=== PATIENT | female | born 1975 | race Caucasian/White ===

== ENCOUNTER 2019-11-06 14:28 | Inpatient (IN) | payer OTHER ==
[~2019-11-06] VITALS: Ht 165.1 cm; Wt 70.0 kg
[2019-11-06] MEDS ORDERED: ONDANSETRON HCL 4 MG/2 ML VIAL IVP PRN (15:45)
[2019-11-06] MEDS ORDERED: ACETAMINOPHEN 325 MG TABLET PO PRN (15:45)
[2019-11-06 19:55] VITALS: BP 114/69
[2019-11-06] MEDS ORDERED: ONDANSETRON HCL 4 MG TABLET PO PRN (20:00)
[2019-11-06] MEDS ORDERED: NICOTINE 14 MG/24 HOUR PATCH TD PRN (20:00)
[2019-11-06] MEDS ORDERED: MAG HYDROX/AL HYDROX/SIMETH ES 30 ML SUSPENSION UDCUP PO PRN (20:00)
[2019-11-06] MEDS ORDERED: LOPERAMIDE HCL 2 MG CAPSULE PO PRN (20:00)
[2019-11-06] MEDS ORDERED: GuaiFENesin/D-METHORPHAN [SUGAR-FREE] 200-20MG/10 ML SYRUP UDCUP PO PRN (20:00)
[2019-11-06] MEDS ORDERED: DOCUSATE SODIUM 100 MG CAPSULE PO PRN (20:00)
[2019-11-06] MEDS ORDERED: PETROLATUM,WHITE 28 GM JELLY TP PRN (20:00)
[2019-11-06] MEDS ORDERED: CloNIDine HCL 0.1 MG TABLET PO PRN (20:00)
[2019-11-06] MEDS ORDERED: ALBUTEROL SULFATE HFA 90 MCG/PUFF 8 GM INHALER IH PRN (20:00)
[2019-11-06] MEDS ORDERED: MAGNESIUM HYDROXIDE SUSPENSION 30 ML UDCUP PO PRN (20:00)
[2019-11-06] MEDS: ACETAMINOPHEN 325 MG TABLET PO PRN (23:16)
[2019-11-06 23:20] VITALS: BP 131/78
[2019-11-07] VITALS (19 sets, daily range): BP systolic 103–132; BP diastolic 58–87
[2019-11-07 06:32] LABS: BASOPHILS % (AUTO) 1.3 % (0.0-2.0); EOSINOPHILS % (AUTO) 2.4 % (1.0-6.0); LYMPHOCYTES # (AUTO) 1.4 K/uL (1.0-4.8); LYMPHOCYTES % (AUTO) 28.7 % (22.0-44.0); MEAN CORPUSCULAR HEMOGLOBIN 12.9 pg (26.0-34.0); MEAN CORPUSCULAR HGB CONC 25.8 G/dL (31.0-37.0); MEAN CORPUSCULAR VOLUME 50 fL (80-100); MONOCYTES # (AUTO) 0.5 K/uL (0.1-1.0); MONOCYTES % (AUTO) 9.6 % (2.0-9.0); NEUTROPHILS # (AUTO) 2.9 K/uL (1.8-7.7); PLATELET COUNT (AUTO) 354 K/uL (150-450); RED BLOOD CELL COUNT(AUTO) 3.71 MIL/uL (4.00-5.20)
[2019-11-07 06:52] LABS: HEMATOCRIT 18.5 % (36-46); HEMOGLOBIN 4.8 g/dL (12.0-16.0)
[2019-11-07 07:01] LABS: ANION GAP 6 mmol/L (8-16); CALCIUM, TOTAL 8.2 mg/dL (8.8-10.5); CARBON DIOXIDE 27 mmol/L (22-29); CHLORIDE 106 mmol/L (98-107); CHOLESTEROL 145 mg/dL (131-200); CREATININE 0.75 mg/dL (0.60-1.30); GLOMERULAR FILTR. RATE CALC > 60 mL/min (>60); GLUCOSE,RANDOM 85 mg/dL (70-110); HDL CHOLESTEROL 73 mg/dL (40-60); LDL CHOL (CALC.) 62 mg/dL (0-130); POTASSIUM 3.9 mmol/L (3.5-5.1); SODIUM SERUM 139 mmol/L (136-145); TRIGLYCERIDES 52 mg/dL (15-150); UREA NITROGEN, BLOOD 11 mg/dL (7-18)
[2019-11-07 08:01] LABS: PLATELET MORPHOLOGY COMMENT GIANT PLTS PRESENT
[2019-11-07] MEDS: ACETAMINOPHEN 325 MG TABLET PO PRN ×2 (08:49→22:22)
[2019-11-07 10:22] LABS: MEAN CORPUSCULAR HEMOGLOBIN 12.6 pg (26.0-34.0); MEAN CORPUSCULAR HGB CONC 25.4 G/dL (31.0-37.0); MEAN CORPUSCULAR VOLUME 50 fL (80-100); PLATELET COUNT (AUTO) 367 K/uL (150-450); RED CELL DISTRIBUTION WIDTH 22.4 % (11.5-14.5)
[2019-11-07 10:36] LABS: HEMOGLOBIN 4.8 g/dL (12.0-16.0)
[2019-11-07 10:37] LABS: HEMATOCRIT 18.9 % (36-46)
[2019-11-07] MEDS ORDERED: SODIUM CHLORIDE 0.9% 500 ML IV ONE (10:55)
[2019-11-07 11:05] LABS: BAND NEUTROPHILS % (MANUAL) 3 % (0-5); EOSINOPHILS % (MANUAL) 1 % (1-6); LYMPHOCYTES % (MANUAL) 29 % (22-44); METAMYELOCYTES % 1 % (0-0); MONOCYTES % (MANUAL) 3 % (2-9); PLATELET MORPHOLOGY COMMENT GIANT PLTS PRESENT; SEGMENTED NEUTROPHILS % 63 % (40-70)
[2019-11-07 12:21] LABS: % IRON SATURATION 1.9 % (22-44)
[2019-11-07] MEDS: IBUPROFEN 400 MG TABLET PO PRN (12:25)
[2019-11-07 16:17] LABS: APPEARANCE,URINE CLOUDY (CLEAR); BILIRUBIN,URINE NEGATIVE (NEGATIVE); GLUCOSE, URINE (UA) NEGATIVE (NEGATIVE); KETONES,URINE NEGATIVE (NEGATIVE); LEUKOCYTE ESTERASE ,URINE MODERATE (NEGATIVE); NITRATE,URINE POSITIVE (NEGATIVE); OCCULT BLOOD,URINE MODERATE (NEGATIVE); PH,URINE 5.5 (5.0-8.0); PROTEIN,URINE NEGATIVE (NEGATIVE)
[2019-11-07 16:24] LABS: AMPHET/METH SCREEN,URINE POSITIVE (NEGATIVE); BARBITURATE SCREEN, URINE NEGATIVE (NEGATIVE); BENZODIAZEPINES SCREEN,URINE NEGATIVE (NEGATIVE); CANNABINOID SCREEN,URINE NEGATIVE (NEGATIVE); COCAINE SCREEN,URINE NEGATIVE (NEGATIVE); METHADONE SCREEN, URINE NEGATIVE (NEGATIVE); OPIATE SCREEN,URINE NEGATIVE (NEGATIVE); PHENCYCLIDINE SCREEN,URINE NEGATIVE (NEGATIVE)
[2019-11-07 16:25] LABS: BACTERIA,URINE Many /HPF (None Seen); RBC,URINE 0-2 /HPF (0-2); SQUAMOUS EPITHELIAL CELL,UR Few /LPF (None Seen); WBC,URINE 26-50 /HPF (0-5)
[2019-11-08] VITALS (14 sets, daily range): BP systolic 103–138; BP diastolic 63–91
[2019-11-08] MEDS: IBUPROFEN 400 MG TABLET PO PRN (03:27)
[2019-11-08 07:47] LABS: BASOPHILS % (AUTO) 1.5 % (0.0-2.0); EOSINOPHILS % (AUTO) 0.7 % (1.0-6.0); HEMATOCRIT 23.8 % (36-46); LYMPHOCYTES # (AUTO) 1.1 K/uL (1.0-4.8); MEAN CORPUSCULAR HEMOGLOBIN 15.6 pg (26.0-34.0); MEAN CORPUSCULAR HGB CONC 28.1 G/dL (31.0-37.0); MEAN CORPUSCULAR VOLUME 55 fL (80-100); MONOCYTES # (AUTO) 0.4 K/uL (0.1-1.0); MONOCYTES % (AUTO) 7.6 % (2.0-9.0); NEUTROPHILS % (AUTO) 70.2 % (40.0-70.0); PLATELET COUNT (AUTO) 326 K/uL (150-450); RED CELL DISTRIBUTION WIDTH 31.6 % (11.5-14.5)
[2019-11-08 08:00] LABS: ANION GAP 8 mmol/L (8-16); CARBON DIOXIDE 25 mmol/L (22-29); CHLORIDE 104 mmol/L (98-107); CREATININE 0.64 mg/dL (0.60-1.30); GLOMERULAR FILTR. RATE CALC > 60 mL/min (>60); GLUCOSE,RANDOM 85 mg/dL (70-110); POTASSIUM 3.6 mmol/L (3.5-5.1); SODIUM SERUM 137 mmol/L (136-145); UREA NITROGEN, BLOOD 7 mg/dL (7-18)
[2019-11-08 08:09] LABS: HEMOGLOBIN 6.7 g/dL (12.0-16.0)
[2019-11-08] MEDS: CefTRIAXone 1 GM/DEXTROSE 50 ML IV SCH (16:30)
[2019-11-08 17:09] LABS: BASOPHILS % (AUTO) 1.8 % (0.0-2.0); EOSINOPHILS % (AUTO) 1.4 % (1.0-6.0); HEMATOCRIT 26.7 % (36-46); HEMOGLOBIN 7.8 g/dL (12.0-16.0); LYMPHOCYTES # (AUTO) 0.9 K/uL (1.0-4.8); LYMPHOCYTES % (AUTO) 18.5 % (22.0-44.0); MEAN CORPUSCULAR HEMOGLOBIN 17.3 pg (26.0-34.0); MEAN CORPUSCULAR HGB CONC 29.1 G/dL (31.0-37.0); MEAN CORPUSCULAR VOLUME 60 fL (80-100); MONOCYTES # (AUTO) 0.5 K/uL (0.1-1.0); MONOCYTES % (AUTO) 9.7 % (2.0-9.0); NEUTROPHILS # (AUTO) 3.4 K/uL (1.8-7.7); NEUTROPHILS % (AUTO) 68.6 % (40.0-70.0); PLATELET COUNT (AUTO) 293 K/uL (150-450); RED BLOOD CELL COUNT(AUTO) 4.48 MIL/uL (4.00-5.20); RED CELL DISTRIBUTION WIDTH 36.7 % (11.5-14.5)
[2019-11-08] MEDS: ACETAMINOPHEN 325 MG TABLET PO PRN (23:20)
[2019-11-09 05:45] VITALS: BP 128/75
[2019-11-09 07:30] VITALS: BP 137/87
[2019-11-09 11:30] VITALS: BP 124/76
[2019-11-09] MEDS: CefTRIAXone 1 GM/DEXTROSE 50 ML IV SCH (14:16)
[2019-11-09 19:36] VITALS: BP 126/71
[2019-11-09] MEDS: ACETAMINOPHEN 325 MG TABLET PO PRN (21:18)
[2019-11-09 23:15] VITALS: BP 135/89
[2019-11-10 05:02] VITALS: BP 136/69
[2019-11-10 07:15] LABS: BASOPHILS % (AUTO) 1.3 % (0.0-2.0); EOSINOPHILS % (AUTO) 4.2 % (1.0-6.0); HEMATOCRIT 28.4 % (36-46); HEMOGLOBIN 8.4 g/dL (12.0-16.0); LYMPHOCYTES # (AUTO) 1.6 K/uL (1.0-4.8); MEAN CORPUSCULAR HEMOGLOBIN 17.5 pg (26.0-34.0); MEAN CORPUSCULAR HGB CONC 29.5 G/dL (31.0-37.0); MEAN CORPUSCULAR VOLUME 59 fL (80-100); MONOCYTES # (AUTO) 0.5 K/uL (0.1-1.0); MONOCYTES % (AUTO) 10.5 % (2.0-9.0); NEUTROPHILS # (AUTO) 2.2 K/uL (1.8-7.7); PLATELET COUNT (AUTO) 330 K/uL (150-450); RED BLOOD CELL COUNT(AUTO) 4.79 MIL/uL (4.00-5.20); RED CELL DISTRIBUTION WIDTH 37.7 % (11.5-14.5)
[2019-11-10 08:34] VITALS: BP 138/89
[2019-11-10 11:35] VITALS: BP 138/82
[2019-11-10] MEDS: CefTRIAXone 1 GM/DEXTROSE 50 ML IV SCH (14:11)
[2019-11-10 15:01] VITALS: BP 132/74
[2019-11-10] MEDS: ACETAMINOPHEN 325 MG TABLET PO PRN (17:37)
[2019-11-10 19:22] VITALS: BP 127/77
[2019-11-10 23:02] VITALS: BP 134/80
[2019-11-10] MEDS: IBUPROFEN 400 MG TABLET PO PRN (23:22)
[2019-11-11 05:40] VITALS: BP 122/95
[2019-11-11 07:25] VITALS: BP 108/66
[2019-11-11 11:19] VITALS: BP 140/77
[2019-11-11] MEDS: CefTRIAXone 1 GM/DEXTROSE 50 ML IV SCH (13:58)
[2019-11-11 15:04] VITALS: BP 124/69
[2019-11-11 19:16] VITALS: BP 121/76
[2019-11-11] MEDS: MELATONIN 5 MG TABLET PO PRN (23:22)
[2019-11-12] VITALS (7 sets, daily range): BP systolic 115–148; BP diastolic 62–89
[2019-11-12] MEDS: FERROUS SULFATE 325 MG EC TABLET PO SCH ×3 (09:25→17:56)
[2019-11-12] MEDS ORDERED: SODIUM CHLORIDE 0.9% 250 ML IV ONE (13:43)
[2019-11-12] MEDS: CefTRIAXone 1 GM/DEXTROSE 50 ML IV SCH (13:52)
[2019-11-12] MEDS: SENNA 187 MG TABLET PO SCH (20:19)
[2019-11-12] MEDS: ACETAMINOPHEN 325 MG TABLET PO PRN (21:22)
[2019-11-12] MEDS: MELATONIN 5 MG TABLET PO PRN (22:53)
[2019-11-13 05:15] VITALS: BP 129/74
[2019-11-13 06:26] LABS: BASOPHILS % (AUTO) 1.3 % (0.0-2.0); HEMATOCRIT 26.3 % (36-46); HEMOGLOBIN 7.7 g/dL (12.0-16.0); LYMPHOCYTES # (AUTO) 2.4 K/uL (1.0-4.8); LYMPHOCYTES % (AUTO) 39.5 % (22.0-44.0); MEAN CORPUSCULAR HEMOGLOBIN 17.4 pg (26.0-34.0); MEAN CORPUSCULAR HGB CONC 29.2 G/dL (31.0-37.0); MEAN CORPUSCULAR VOLUME 60 fL (80-100); MONOCYTES # (AUTO) 0.4 K/uL (0.1-1.0); NEUTROPHILS % (AUTO) 49.2 % (40.0-70.0); PLATELET COUNT (AUTO) 353 K/uL (150-450); RED BLOOD CELL COUNT(AUTO) 4.41 MIL/uL (4.00-5.20); RED CELL DISTRIBUTION WIDTH 36.6 % (11.5-14.5)
[2019-11-13 07:15] LABS: ANION GAP 6 mmol/L (8-16); CARBON DIOXIDE 29 mmol/L (22-29); CHLORIDE 105 mmol/L (98-107); CREATININE 0.71 mg/dL (0.60-1.30); GLOMERULAR FILTR. RATE CALC > 60 mL/min (>60); GLUCOSE,RANDOM 76 mg/dL (70-110); POTASSIUM 3.9 mmol/L (3.5-5.1); SODIUM SERUM 140 mmol/L (136-145)
[2019-11-13 07:42] LABS: UREA NITROGEN, BLOOD 11 mg/dL (7-18)
[2019-11-13 08:04] VITALS: BP 135/98
[2019-11-13] MEDS: FERROUS SULFATE 325 MG EC TABLET PO SCH ×3 (09:06→18:12)
[2019-11-13 12:39] VITALS: BP 129/74
[2019-11-13] MEDS: CefTRIAXone 1 GM/DEXTROSE 50 ML IV SCH (15:28)
[2019-11-13 16:57] VITALS: BP 131/72
[2019-11-13 19:22] VITALS: BP 130/75
[2019-11-13] MEDS: SENNA 187 MG TABLET PO SCH (19:54)
[2019-11-13] MEDS: MELATONIN 5 MG TABLET PO PRN (20:25)
[2019-11-13 23:15] VITALS: BP 118/68
[2019-11-14 05:35] VITALS: BP 120/75
[2019-11-14 07:15] VITALS: BP 121/79
[2019-11-14 07:31] LABS: BASOPHILS % (AUTO) 1.3 % (0.0-2.0); EOSINOPHILS % (AUTO) 3.8 % (1.0-6.0); HEMATOCRIT 26.1 % (36-46); HEMOGLOBIN 7.6 g/dL (12.0-16.0); LYMPHOCYTES # (AUTO) 2.4 K/uL (1.0-4.8); LYMPHOCYTES % (AUTO) 34.7 % (22.0-44.0); MEAN CORPUSCULAR HEMOGLOBIN 17.3 pg (26.0-34.0); MEAN CORPUSCULAR HGB CONC 28.9 G/dL (31.0-37.0); MEAN CORPUSCULAR VOLUME 60 fL (80-100); MONOCYTES # (AUTO) 0.5 K/uL (0.1-1.0); MONOCYTES % (AUTO) 7.2 % (2.0-9.0); NEUTROPHILS # (AUTO) 3.6 K/uL (1.8-7.7); PLATELET COUNT (AUTO) 350 K/uL (150-450); RED BLOOD CELL COUNT(AUTO) 4.37 MIL/uL (4.00-5.20); RED CELL DISTRIBUTION WIDTH 36.5 % (11.5-14.5)
[2019-11-14 07:38] LABS: ANION GAP 6 mmol/L (8-16); CALCIUM, TOTAL 8.2 mg/dL (8.8-10.5); CARBON DIOXIDE 30 mmol/L (22-29); CHLORIDE 105 mmol/L (98-107); CREATININE 0.62 mg/dL (0.60-1.30); GLOMERULAR FILTR. RATE CALC > 60 mL/min (>60); GLUCOSE,RANDOM 75 mg/dL (70-110); POTASSIUM 3.9 mmol/L (3.5-5.1); SODIUM SERUM 141 mmol/L (136-145); UREA NITROGEN, BLOOD 14 mg/dL (7-18)
[2019-11-14] MEDS: FERROUS SULFATE 325 MG EC TABLET PO SCH ×3 (08:04→18:21)
[2019-11-14 11:20] VITALS: BP 118/78
[2019-11-14] MEDS: CefTRIAXone 1 GM/DEXTROSE 50 ML IV SCH (14:24)
[2019-11-14 15:59] VITALS: BP 117/67
[2019-11-14] MEDS ORDERED: SODIUM CHLORIDE 0.9% 500 ML IV ONE (17:01)
[2019-11-14 20:05] VITALS: BP 127/78
[2019-11-14] MEDS: SENNA 187 MG TABLET PO SCH (20:35)
[2019-11-14] MEDS: MELATONIN 5 MG TABLET PO PRN (23:15)
[2019-11-14 23:30] VITALS: BP 112/66
[2019-11-15 05:40] VITALS: BP 120/82
[2019-11-15 07:57] LABS: BASOPHILS % (AUTO) 1.1 % (0.0-2.0); EOSINOPHILS % (AUTO) 3.8 % (1.0-6.0); HEMATOCRIT 26.9 % (36-46); HEMOGLOBIN 7.7 g/dL (12.0-16.0); LYMPHOCYTES # (AUTO) 3.1 K/uL (1.0-4.8); LYMPHOCYTES % (AUTO) 48.3 % (22.0-44.0); MEAN CORPUSCULAR HEMOGLOBIN 17.3 pg (26.0-34.0); MEAN CORPUSCULAR HGB CONC 28.4 G/dL (31.0-37.0); MEAN CORPUSCULAR VOLUME 61 fL (80-100); MONOCYTES # (AUTO) 0.4 K/uL (0.1-1.0); MONOCYTES % (AUTO) 6.4 % (2.0-9.0); NEUTROPHILS # (AUTO) 2.6 K/uL (1.8-7.7); NEUTROPHILS % (AUTO) 40.4 % (40.0-70.0); PLATELET COUNT (AUTO) 361 K/uL (150-450); RED BLOOD CELL COUNT(AUTO) 4.42 MIL/uL (4.00-5.20); RED CELL DISTRIBUTION WIDTH 37.6 % (11.5-14.5)
[2019-11-15] MEDS: FERROUS SULFATE 325 MG EC TABLET PO SCH ×3 (08:00→18:40)
[2019-11-15 10:00] VITALS: BP 118/76
[2019-11-15] MEDS: CefTRIAXone 1 GM/DEXTROSE 50 ML IV SCH (14:43)
[2019-11-15 15:10] VITALS: BP 104/59
[2019-11-15] MEDS: ACETAMINOPHEN 325 MG TABLET PO PRN (15:49)
[2019-11-15 20:11] VITALS: BP 119/74
[2019-11-15] MEDS: SENNA 187 MG TABLET PO SCH (20:46)
[2019-11-15 23:39] VITALS: BP 124/73
[2019-11-16 05:03] VITALS: BP 136/81
[2019-11-16 07:32] VITALS: BP 123/77
[2019-11-16 07:35] LABS: BASOPHILS % (AUTO) 1.7 % (0.0-2.0); EOSINOPHILS % (AUTO) 3.8 % (1.0-6.0); HEMATOCRIT 26.8 % (36-46); HEMOGLOBIN 7.7 g/dL (12.0-16.0); LYMPHOCYTES # (AUTO) 3.1 K/uL (1.0-4.8); LYMPHOCYTES % (AUTO) 43.3 % (22.0-44.0); MEAN CORPUSCULAR HEMOGLOBIN 17.7 pg (26.0-34.0); MEAN CORPUSCULAR HGB CONC 28.8 G/dL (31.0-37.0); MEAN CORPUSCULAR VOLUME 62 fL (80-100); MONOCYTES # (AUTO) 0.5 K/uL (0.1-1.0); MONOCYTES % (AUTO) 7.4 % (2.0-9.0); NEUTROPHILS # (AUTO) 3.2 K/uL (1.8-7.7); NEUTROPHILS % (AUTO) 43.8 % (40.0-70.0); PLATELET COUNT (AUTO) 360 K/uL (150-450); RED BLOOD CELL COUNT(AUTO) 4.36 MIL/uL (4.00-5.20); RED CELL DISTRIBUTION WIDTH 37.5 % (11.5-14.5)
[2019-11-16] MEDS: FERROUS SULFATE 325 MG EC TABLET PO SCH ×3 (08:53→17:13)
[2019-11-16 12:25] VITALS: BP 119/78
[2019-11-16] MEDS: CefTRIAXone 1 GM/DEXTROSE 50 ML IV SCH (14:40)
[2019-11-16 16:20] VITALS: BP 122/69
[2019-11-16] MEDS: ACETAMINOPHEN 325 MG TABLET PO PRN (16:23)
[2019-11-16 20:06] VITALS: BP 119/63
[2019-11-16] MEDS: SENNA 187 MG TABLET PO SCH (21:00)
[2019-11-16] MEDS: MELATONIN 5 MG TABLET PO PRN (22:53)
[2019-11-17 00:35] VITALS: BP 114/87
[2019-11-17] MEDS: ACETAMINOPHEN 325 MG TABLET PO PRN (01:30)
[2019-11-17 04:00] VITALS: BP 133/69
[2019-11-17 08:00] VITALS: BP 106/67
[2019-11-17] MEDS: FERROUS SULFATE 325 MG EC TABLET PO SCH ×3 (08:03→18:12)
[2019-11-17 11:46] VITALS: BP 140/68
[2019-11-17] MEDS: CefTRIAXone 1 GM/DEXTROSE 50 ML IV SCH (14:01)
[2019-11-17] MEDS ORDERED: FERR-89 PO ×2 (16:36)
[2019-11-17 20:05] VITALS: BP 126/75
[2019-11-17] MEDS: SENNA 187 MG TABLET PO SCH (20:28)
[2019-11-17] MEDS: MELATONIN 5 MG TABLET PO PRN (23:06)
[2019-11-18 04:55] VITALS: BP 107/66
== END 2019-11-18 07:20 | DRG 812 ==
LOC: EMS 14:30 → 6S 15:38
PROVIDERS: ADMIT Internal Medicine; ATTEND Internal Medicine
PROC: 30233N1 Transfusion of Nonautologous Red Blood Cells into Peripheral Vein, Percutaneous Approach (ICD-10-PCS; principal; 2019-11-07)
DX: D50.9 Iron deficiency anemia, unspecified (principal); F33.2 Major depressive disorder, recurrent severe without psychotic features; R45.851 Suicidal ideations; N39.0 Urinary tract infection, site not specified; F41.9 Anxiety disorder, unspecified; F15.10 Other stimulant abuse, uncomplicated
CPT/HCPCS: 36430; 76881; 80307; 82271; 82728; 83540; 83550; 86850; 86900; 86901; 86920; 87086; J0696; J7040; J7050; P9016; Q0162